=== PATIENT | female | born 1985 | race Caucasian/White ===

== ENCOUNTER 2024-12-23 08:03 | Emergency (ER) | payer OTHER ==
[~2024-12-23] VITALS: Ht 157.5 cm; Wt 49.9 kg
[2024-12-23 08:03] VITALS: BP 138/89
[2024-12-23 08:36] LABS: PLATELET COUNT (AUTO) 170 K/uL (179-408); RED BLOOD CELL COUNT(AUTO) 3.85 MIL/uL (3.63-4.92); RED CELL DISTRIBUTION WIDTH 18.7 % (12.3-17.7); WHITE BLOOD COUNT (AUTO) 3.8 K/uL (3.8-11.8)
[2024-12-23] MEDS ORDERED: MAGNESIUM SULFATE/D5W 100 ML ONE ×2 (08:41→09:28)
[2024-12-23] MEDS ORDERED: CYANOCOBALAMIN 1000 MCG/ML VIAL ONE (08:41)
[2024-12-23] MEDS ORDERED: THIAMINE HCL 200 MG/2 ML VIAL ONE (08:45)
[2024-12-23] MEDS: MAGNESIUM SULFATE/D5W 100 ML IV ONE (08:52)
[2024-12-23] MEDS: IV NORMAL SALINE 1000 ML BAG IV ONE (08:52)
[2024-12-23] MEDS: THIAMINE HCL 200 MG/2 ML VIAL IV ONE (08:53)
[2024-12-23 09:05] LABS: CREATININE 0.6 mg/dL (0.6-1.3); SODIUM SERUM 139.0 mmol/L (136-145); UREA NITROGEN, BLOOD 3.0 mg/dL (7-18)
[2024-12-23 09:11] LABS: ASPARTATE AMINOTRANSFERASE 700.0 U/L (15-37); TOTAL PROTEIN, SERUM 6.7 g/dL (6.4-8.2)
[2024-12-23 09:31] LABS: ETHANOL 13.0 MG/DL (0-10)
[2024-12-23 09:43] LABS: *BILIRUBIN,URIN 2+ (NEGATIVE); *COLOR,URINE YELLOW (YELLOW); *KETONES,URINE 4+ (NEGATIVE); *PROTEIN,URINE 3+ (NEGATIVE); *UROBILINOGEN,URINE 1.0 E.U./dl (NORMAL); LEUKOCYTE ESTERASE ,URINE NEGATIVE (NEGATIVE); NITRITE, URINE NEGATIVE (NEGATIVE); UGLUCOSE NEGATIVE (NEGATIVE)
[2024-12-23 09:44] LABS: *BLOOD, URINE TRACE (NEGATIVE)
[2024-12-23 09:45] LABS: *URINE HCG, QUAL NEGATIVE (NEGATIVE)
[2024-12-23 09:55] LABS: *CLARITY,URINE SLIGHTLY CLOUDY (CLEAR); SQUAMOUS EPITHELIAL CELL,UR MANY /HPF (NONE SEEN); URINE AMORPHOUS URATE MODERATE /HPF
[2024-12-23 09:56] LABS: *AMPHETAMINE, URINE NEGATIVE (NEGATIVE); *BARBITURATE, URINE POSITIVE (NEGATIVE); *BENZODIAZEPINE, URINE POSITIVE (NEGATIVE); *CANNABINOID, URINE NEGATIVE (NEGATIVE); *COCCAINE, URINE NEGATIVE (NEGATIVE); *OPIATE, URINE NEGATIVE (NEGATIVE); *PHENCYCLIDINE SCREEN,URINE NEGATIVE (NEGATIVE); FENTANYL, URINE NEGATIVE (NEGATIVE)
[2024-12-23] MEDS ORDERED: POTASSIUM CHLORIDE 20 MEQ TAB.PRT.SR ONE (10:09)
[2024-12-23] MEDS: POTASSIUM CHLORIDE 20 MEQ TAB.PRT.SR PO ONE (10:13)
[2024-12-23] MEDS ORDERED: DIAZEPAM 5 MG TABLET ONE (10:14)
[2024-12-23] MEDS: DIAZEPAM 2 MG TABLET PO ONE (10:15)
[2024-12-23] MEDS ORDERED: DIAZ5TAB4 PO (10:16)
[2024-12-23 11:20] VITALS: BP 135/90; O2SAT 100
== END 2024-12-23 11:22 | disposition home or self-care (01) ==
LOC: ER 08:03
DX: Z02.89 Encounter for other administrative examinations (principal); E03.9 Hypothyroidism, unspecified; F17.290 Nicotine dependence, other tobacco product, uncomplicated; G40.909 Epilepsy, unspecified, not intractable, without status epilepticus; Z86.79 Personal history of other diseases of the circulatory system
CPT/HCPCS: 80076; 80048; 81001; 84703; 84443; 85025; 87086; 36415; 99284; 96365; 96375; 80299; 80320; 80307; J3475 ×2; J3411; J7040; A4606; A4663; G0480; J3420